=== PATIENT | male | born 1945 | race Caucasian/White ===

== ENCOUNTER 2020-02-08 03:23 | Emergency (ER) | payer MEDICARE ==
[~2020-02-08] VITALS: Ht 172.7 cm; Wt 75.0 kg
[~2020-02-08 03:23] MED LIST: CETI1TAB PO; CLON0.122 PO; GABA-530 PO; HYDR12.5 PO; IBUP-24 PO; LISI-600 PO; TRAZ-251 PO; VIT1TABL91 PO
[2020-02-08] MEDS ORDERED: normal saline 1000ML IV soln IVB ONE (03:55)
[2020-02-08] MEDS ORDERED: ondansetron/PF 4mg/2ml inj IV ONE (03:55)
[2020-02-08] MEDS ORDERED: pantoprazole 40 MG vial IV ONE (03:55)
[2020-02-08 03:58] LABS: BASOPHILS # (AUTO) 0.1 X10'3 (0-0.2); BASOPHILS % (AUTO) 0.5 % (0-1); EOSINOPHILS % (AUTO) 0.2 % (0-6); HEMATOCRIT 46.6 % (42.0-52.0); HEMOGLOBIN 15.4 g/dl (14.0-17.9); LYMPHOCYTES # (AUTO) 0.8 X10'3 (1.1-4.8); LYMPHOCYTES % (AUTO) 6.5 % (21-51); MEAN CORPUSCULAR HEMOGLOBIN 31.7 PG (27.0-31.0); MEAN CORPUSCULAR VOLUME 96.1 FL (78-98); MEAN PLATELET VOLUME 9.1 FL (7.4-10.4); MONOCYTES # (AUTO) 0.5 X10'3 (0-0.9); MONOCYTES % (AUTO) 4.1 % (2-12); NEUTROPHILS # (AUTO) 11.1 X10'3 (1.8-7.7); NEUTROPHILS % (AUTO) 88.7 % (42-75); PLATELET COUNT 276 X10'3 (140-440); RED BLOOD COUNT 4.85 X10'6 (4.70-6.10); RED CELL DISTRIBUTION WIDTH 13.2 % (11.5-14.5); WHITE BLOOD COUNT 12.5 X10'3 (4.5-11.0)
[2020-02-08 04:10] LABS: ALANINE AMINOTRANSFERASE 16 U/L (12-78); ALBUMIN/GLOBULIN RATIO 1.1 (1.1-1.5); ALKALINE PHOSPHATASE 93 IU/L (46-116); ANION GAP 9 (8-16); ASPARTATE AMINO TRANSFERASE 10 U/L (10-37); BILIRUBIN,TOTAL 0.9 MG/DL (0.1-1.0); BLOOD UREA NITROGEN 16 MG/DL (7-18); BUN/CREATININE RATIO 15.7 (5.4-32.0); CALCIUM 8.9 MG/DL (8.5-10.1); CHLORIDE 107 MMOL/L (99-107); CREATININE 1.02 MG/DL (0.60-1.10); GLUCOSE 125 MG/DL (70-104); POTASSIUM 3.2 MMOL/L (3.5-5.1); SODIUM 143 MMOL/L (135-145); TOTAL CARBON DIOXIDE 27.5 MMOL/L (24-32); TOTAL PROTEIN 7.8 G/DL (6.4-8.2); eGFR 72 ML/MIN
[2020-02-08 04:17] LABS: TROPONIN I < 0.04 NG/ML (0.0-0.05)
[2020-02-08 04:43] LABS: LIPASE 103 U/L (73-393)
[2020-02-08 05:17] LABS: CLARITY,URINE CLEAR (Clear); COLOR,URINE YELLOW (Yellow); GLUCOSE, URINE NEGATIVE (Neg); KETONES,URINE TRACE mg/dl (Neg); LEUKOCYTE ESTERASE ,URINE NEGATIVE (Neg); NITRITES, URINE NEGATIVE (Neg); OCCULT BLOOD,URINE NEGATIVE (Neg); PH,URINE 6.5 (4.8-8.0); PROTEIN,URINE 30 mg/dl (Neg)
[2020-02-08 05:20] LABS: UA COLLECTION TYPE URINAL
[2020-02-08] MEDS ORDERED: PANT-47 PO (05:34)
[2020-02-08 05:56] LABS: BACTERIA,URINE NONE SEEN /HPF (Neg); MUCUS STRANDS NONE SEEN /LPF (Neg); RBC,URINE NONE SEEN /HPF (0-2); SQUAMOUS EPITHELIAL CELL,UR FEW /LPF (FEW); WBC,URINE 0-4 /HPF (0-4)
--- NOTE | 2020-02-08 07:10 | NUR ---
Spoke to pt regarding ride home. Pt states he wasn't aware that he was needing to contact someone for a ride. Pt to call ride home.
--- NOTE | 2020-02-08 07:14 | NUR ---
Pt able to contact friend for a ride home, however he lives in [place] and will take roughly 30-40 minutes.
[2020-02-08 07:22] VITALS: BP 152/78
== END 2020-02-08 07:24 | disposition home or self-care (01) ==
LOC: ER 03:23
DX: R10.13 Epigastric pain (principal); R10.11 Right upper quadrant pain; R11.10 Vomiting, unspecified; I10 Essential (primary) hypertension; J45.909 Unspecified asthma, uncomplicated; F17.200 Nicotine dependence, unspecified, uncomplicated; Z88.1 Allergy status to other antibiotic agents; Z79.899 Other long term (current) drug therapy
CPT/HCPCS: 36415; 71045; 80053; 81001; 83690; 83880; 84484; 85025; 93005; 96361; 96374; 96375; 99285; C9113; J2405; J7030

== ENCOUNTER 2020-02-24 12:22 | Emergency (ER) | payer MEDICARE ==
[~2020-02-24] VITALS: Ht 243.8 cm; Wt 68.2 kg
[~2020-02-24 12:22] MED LIST changes: +ALBU18HF2 IH; +AMOX-419 PO; +ASCO-134 PO; +ASPI-611 PO; -CETI1TAB PO; +CHOL500050 PO; +CLON-473 PO; -CLON0.122 PO; +FLO0.4C PO; -GABA-530 PO; +HYDR-4353 PO; -HYDR12.5 PO; -IBUP-24 PO; -LISI-600 PO; +NICO-631 TD; +PANT40TA54 PO; +SERT25TA PO; -TRAZ-251 PO; -VIT1TABL91 PO
[2020-02-24] MEDS ORDERED: LIDOcaine 2% 10ml TOPICAL JELLY (Urojet) MM ONE (15:40)
[2020-02-24 16:04] LABS: BASOPHILS # (AUTO) 0.2 X10'3 (0-0.2); BASOPHILS % (AUTO) 1.3 % (0-1); EOSINOPHILS % (AUTO) 0.3 % (0-6); HEMATOCRIT 38.2 % (42.0-52.0); HEMOGLOBIN 12.7 g/dl (14.0-17.9); LYMPHOCYTES # (AUTO) 1.6 X10'3 (1.1-4.8); LYMPHOCYTES % (AUTO) 13.2 % (21-51); MEAN CORPUSCULAR HEMOGLOBIN 31.3 PG (27.0-31.0); MEAN CORPUSCULAR HGB CONC 33.2 g/dL (33.0-36.5); MEAN CORPUSCULAR VOLUME 94.4 FL (78-98); MEAN PLATELET VOLUME 8.4 FL (7.4-10.4); MONOCYTES # (AUTO) 0.9 X10'3 (0-0.9); MONOCYTES % (AUTO) 7.2 % (2-12); NEUTROPHILS # (AUTO) 9.3 X10'3 (1.8-7.7); PLATELET COUNT 382 X10'3 (140-440); RED BLOOD COUNT 4.04 X10'6 (4.70-6.10); RED CELL DISTRIBUTION WIDTH 13.3 % (11.5-14.5)
--- NOTE | 2020-02-24 16:22 | NUR ---
UNABLE TO OBTAIN UA AT THIS TIME FC PLACED BUT THERE IS ONLY BLOOD COMING UT OF CATH NO URINE, PA AWARE
[2020-02-24 16:34] LABS: ALANINE AMINOTRANSFERASE 20 U/L (12-78); ALBUMIN 3.2 G/DL (3.4-5.0); ALBUMIN/GLOBULIN RATIO 0.9 (1.1-1.5); ALKALINE PHOSPHATASE 78 IU/L (46-116); ANION GAP 6 (8-16); ASPARTATE AMINO TRANSFERASE 20 U/L (10-37); BILIRUBIN,TOTAL 0.7 MG/DL (0.1-1.0); BLOOD UREA NITROGEN 13 MG/DL (7-18); BUN/CREATININE RATIO 14.1 (5.4-32.0); CHLORIDE 106 MMOL/L (99-107); CREATININE 0.92 MG/DL (0.60-1.10); GLUCOSE 116 MG/DL (70-104); POTASSIUM 3.1 MMOL/L (3.5-5.1); SODIUM 138 MMOL/L (135-145); TOTAL CARBON DIOXIDE 26.3 MMOL/L (24-32); TOTAL PROTEIN 6.9 G/DL (6.4-8.2); eGFR 81 ML/MIN
[2020-02-24 18:25] VITALS: BP 173/79
== END 2020-02-24 18:50 | disposition home or self-care (01) ==
LOC: ER 12:23
DX: R31.0 Gross hematuria (principal); G35 Multiple sclerosis; I10 Essential (primary) hypertension; J45.909 Unspecified asthma, uncomplicated; F17.200 Nicotine dependence, unspecified, uncomplicated; Z90.49 Acquired absence of other specified parts of digestive tract; Z88.5 Allergy status to narcotic agent; Z88.8 Allergy status to other drugs, medicaments and biological substances; Z79.82 Long term (current) use of aspirin; Z79.899 Other long term (current) drug therapy
CPT/HCPCS: 36415; 51702; 80053; 85025; 99284

== ENCOUNTER 2020-02-25 15:58 | Emergency (ER) | payer MEDICARE ==
[~2020-02-25] VITALS: Ht 172.7 cm; Wt 66.4 kg
--- NOTE | 2020-02-25 17:33 | NUR ---
irrigated villalobos with 120ml sterile water,solution squirt around villalobos cath site,no noted blood clot.Maximus PA made aware.
--- NOTE | 2020-02-25 17:34 | NUR ---
Verbal order obtained to changed villalobos to a larger size villalobos 18Fr.patient tolerated procedure well.Draining yellow urine.
[2020-02-25 18:11] VITALS: BP 180/84
== END 2020-02-25 18:54 | disposition home or self-care (01) ==
LOC: ER 15:58
DX: T83.9XXA Unspecified complication of genitourinary prosthetic device, implant and graft, initial encounter (principal); R31.9 Hematuria, unspecified; G35 Multiple sclerosis; I10 Essential (primary) hypertension; J45.909 Unspecified asthma, uncomplicated; F17.200 Nicotine dependence, unspecified, uncomplicated; Z90.49 Acquired absence of other specified parts of digestive tract; Z88.8 Allergy status to other drugs, medicaments and biological substances; Z79.82 Long term (current) use of aspirin; Z79.899 Other long term (current) drug therapy
CPT/HCPCS: 51702; 99284

== ENCOUNTER 2024-06-15 14:10 | Outpatient (CLI) | payer MEDICARE, MEDICAID ==
[~2024-06-15 14:10] MED LIST changes: -AMOX-419 PO; -HYDR-4353 PO
[2024-06-15 15:02] VITALS: PULSE 69; RESP 16; O2SAT 98
== END 2024-06-15 23:59 | disposition home or self-care (01) ==
LOC: RT 14:10
PROVIDERS: ATTEND Student in an Organized Health Care Education/Training Program
DX: J45.998 Other asthma (principal)
CPT/HCPCS: 94010; 94760

== ENCOUNTER 2025-03-21 11:57 | Outpatient (CLI) | payer MEDICARE, MEDICAID ==
--- NOTE | 2025-03-21 14:31 | RADIOLOGY REPORT ---
CT Chest without intravenous contrast INDICATION: MULTIPLE LUNG NODULES TECHNIQUE: Multidetector spiral CT of the chest was performed from the lung apices to the upper abdomen. Axial, coronal and sagittal multiplanar reformats were performed. Radiation Dose : 1. Chest: CTDI volume is 9.4 mGy. Dose-length product is 374.5 mGy*cm The dose indicators for CT are the volume Computed Tomography (CT) Dose Index (CTDIvol) and the Dose Length Product (DLP), and are measured in units of mGy and mGy-cm, respectively. These indicators are not patient dose, but values generated from the CT scanner acquisition factors. The report includes radiation exposure data for exposures received during this examination. Comparison: None Findings: Lower neck: Normal thyroid. Lungs: No focal consolidation. Mild centrilobular emphysema. Indeterminate centrally calcified subpleural nodule in the right upper lobe, image 14 measures 1.9 cm. Indeterminate centrally calcified subpleural nodule in the right upper lobe, image 9 measures 1.1 cm. Heart/Vascular Structures: Cardiomegaly. Coronary artery calcifications. Vascular calcifications of the aorta. Lymph Nodes: No adenopathy Pleura: No pleural effusion or significant pneumothorax. Musculoskeletal: No acute osseous abnormality. Degenerative changes of the spine. Soft tissues: Normal. Upper abdomen: Small hiatal hernia. IMPRESSION: No acute thoracic finding. Mild centrilobular emphysema. Indeterminate centrally calcified subpleural nodules in the right upper lobe measuring up to 1.9 cm. Consider follow-up CT in 3 months. Radiation optimization: All CT scans at this facility use at least one of these dose optimization techniques: automated exposure control mA and/or kV adjustment per patient size (includes targeted exams where dose is matched to clinical indication) or iterative reconstruction.
== END 2025-03-21 23:59 | disposition home or self-care (01) ==
LOC: 64 CT 11:57
PROVIDERS: ATTEND Student in an Organized Health Care Education/Training Program
DX: R91.8 Other nonspecific abnormal finding of lung field (principal); J43.2 Centrilobular emphysema; I25.10 Atherosclerotic heart disease of native coronary artery without angina pectoris; I51.7 Cardiomegaly; K44.9 Diaphragmatic hernia without obstruction or gangrene
CPT/HCPCS: 71250